=== PATIENT | female | born 1985 | race Two or more races ===

== ENCOUNTER 2021-07-19 21:08 | Observation (INO) | payer MEDICAID ==
[~2021-07-19] VITALS: Ht 162.6 cm; Wt 71.2 kg
[2021-07-19] MEDS ORDERED: NIFE1TAB31 PO (22:01)
[2021-07-19] MEDS ORDERED: SERT50TA19 PO (22:01)
[2021-07-19] MEDS ORDERED: PREN-96 PO (22:01)
== END 2021-07-19 22:10 | disposition home or self-care (01) ==
LOC: LDRP 21:08
PROVIDERS: ADMIT Obstetrics & Gynecology; ATTEND Obstetrics & Gynecology
DX: O62.9 Abnormality of forces of labor, unspecified (principal); Z3A.29 29 weeks gestation of pregnancy
CPT/HCPCS: 59025; 81002; G0378

== ENCOUNTER 2022-01-27 18:59 | Emergency (ER) | payer OTHER, MEDICAID ==
[~2022-01-27 18:59] MED LIST: NIFE1TAB31 PO; PREN-96 PO; SERT50TA19 PO
== END 2022-01-27 20:26 | disposition left against medical advice (07) ==
LOC: ER 18:59
DX: M79.89 Other specified soft tissue disorders (principal); Z53.21 Procedure and treatment not carried out due to patient leaving prior to being seen by health care provider

== ENCOUNTER 2022-08-26 14:35 | Inpatient (IN) | payer MEDICAID, OTHER ==
[~2022-08-26] VITALS: Ht 160 cm; Wt 70.0 kg
[2022-08-26] MEDS ORDERED: chlordiazePOXIDE HCL 5 MG CAP PO ONE (14:45)
[2022-08-26] MEDS ORDERED: SODIUM CHLORIDE 0.9% 1,000 ML IV ONE ×2 (14:45)
[2022-08-26] MEDS ORDERED: THIAMINE 100mg/ml INJ (200mg/2ml VIAL) IV ONE (14:45)
[2022-08-26 15:17] LABS: Basophils # (auto) 0 10 ^3/uL (0-0.2); Basophils % (auto) 0.5 % (0.0-2.0); Eosinophils # (auto) 0 10 ^3/uL (0-0.8); Hematocrit 37.3 % (36.0-46.0); Hemoglobin 12.2 g/dL (12.2-16.2); Lymphocytes # (auto) 1.1 10 ^3/uL (0.4-5.4); Lymphocytes % (auto) 13.7 % (10.0-50.0); Mean Corpuscular Hgb Conc. 32.8 g/dL (32.0-36.0); Monocytes # (auto) 0.6 10 ^3/uL (0-1.3); Monocytes % (auto) 7.7 % (0.0-12.0); Neutrophils # (auto) 6.2 10 ^3/uL (1.6-8.6); Neutrophils % (auto) 78.1 % (37.0-80.0); Nucleated Red Blood Cells % 0.1 %; Red Blood Cells 5.11 10^6/uL (4.0-5.20); Red Cell Distribution Width 20.4 % (11.8-14.3); White Blood Cell 7.9 10^3/uL (4.4-10.8)
[2022-08-26 15:19] LABS: Albumin 3.3 g/dL (3.4-5.0); Anion Gap 20 (5-15); Blood Urea Nitrogen 10 mg/dL (7-18); Calcium 8.9 mg/dL (8.5-10.1); Carbon Dioxide 23 mmol/L (21-32); Chloride 80 mmol/L (98-107); Glucose 192 mg/dL (74-106); Sodium 123 mmol/L (136-145)
[2022-08-26 15:22] LABS: Alanine Aminotransferase 43 U/L (13-56); Aspartate Aminotransferase 58 U/L (15-37); BUN/Creatinine Ratio 9.2; Blood Alcohol < 3.0 mg/dL (0-5); GFR African American 72 mL/min; GFR Non-African American 59 mL/min
[2022-08-26 15:24] LABS: Alkaline Phosphatase 94 U/L (45-117); Bilirubin, Total 1.7 mg/dL (0.2-1.0)
[2022-08-26 15:25] LABS: Potassium 2.7 mmol/L (3.5-5.1)
[2022-08-26] MEDS ORDERED: LORazepam 2MG/ML-1ML VIAL ONE (16:10)
[2022-08-26] MEDS ORDERED: POTASSIUM EFFERVESENT TAB 25 MEQ PO ONE (16:15)
[2022-08-26] MEDS ORDERED: LORazepam 2MG/ML-1ML VIAL IV ONE (16:15)
[2022-08-26] MEDS ORDERED: MULTIPLE VITAMIN TAB PO ONE (18:15)
[2022-08-26] MEDS ORDERED: ONDANSETRON HCL 4 MG/2 ML VIAL IV PRN (18:15)
[2022-08-26] MEDS ORDERED: LORazepam 2MG/ML-1ML VIAL IV PRN (18:15)
[2022-08-26] MEDS ORDERED: ACETAMINOPHEN 500 MG TAB PO PRN (18:15)
[2022-08-26] MEDS ORDERED: NITROGLYCERIN 0.4 MG SL TAB SL PRN (18:15)
[2022-08-26] MEDS ORDERED: MORPHINE SULFATE INJ 2 MG/ml SYRG IV PRN ×2 (18:15)
[2022-08-26] MEDS ORDERED: THIAMINE HCL 100 MG TAB PO ONE (18:15)
[2022-08-26] MEDS: POTASSIUM CHLORIDE 40 MEQ in SOD CHL 0.45% 1,000 ML IV SCH (20:31)
[2022-08-26 21:59] LABS: Urine Bacteria MOD /hpf (None Seen); Urine Blood Negative /uL (Negative); Urine Specific Gravity 1.004 (1.001-1.035); Urine WBC 1 /hpf (0 - 5)
[2022-08-27 06:41] LABS: Basophils # (auto) 0 10 ^3/uL (0-0.2); Eosinophils # (auto) 0 10 ^3/uL (0-0.8); Eosinophils % (auto) 0.1 % (0.0-7.0); Lymphocytes # (auto) 0.9 10 ^3/uL (0.4-5.4); Monocytes # (auto) 0.4 10 ^3/uL (0-1.3); Monocytes % (auto) 7.9 % (0.0-12.0); Nucleated Red Blood Cells % 0.1 %
[2022-08-27 06:43] LABS: Basophils % (auto) 0.4 % (0.0-2.0); Hemoglobin 11.7 g/dL (12.2-16.2); Lymphocytes % (auto) 16.8 % (10.0-50.0); Mean Corpuscular Hemoglobin 24.1 pg (28.0-32.0); Mean Corpuscular Hgb Conc. 32.3 g/dL (32.0-36.0); Mean Corpuscular Volume 74.5 fL (80.0-100.0); Neutrophils # (auto) 3.8 10 ^3/uL (1.6-8.6); Neutrophils % (auto) 74.8 % (37.0-80.0); Red Blood Cells 4.84 10^6/uL (4.0-5.20); White Blood Cell 5.1 10^3/uL (4.4-10.8)
[2022-08-27] MEDS: POTASSIUM CHLORIDE 40 MEQ in SOD CHL 0.45% 1,000 ML IV SCH (06:49)
[2022-08-27 06:57] LABS: Potassium 3.6 mmol/L (3.5-5.1)
[2022-08-27 06:58] LABS: Albumin 3.2 g/dL (3.4-5.0); Calcium 8.4 mg/dL (8.5-10.1)
[2022-08-27 07:01] LABS: BUN/Creatinine Ratio 6.3; Bilirubin, Total 1.6 mg/dL (0.2-1.0); Total Protein 7.4 g/dL (6.4-8.2)
[2022-08-27 07:15] LABS: Red Cell Distribution Width 20.2 % (11.8-14.3)
[2022-08-27] MEDS: NIFEdipine ER 30 MG TAB PO SCH ×2 (09:53→22:50)
[2022-08-27] MEDS ORDERED: SERTRALINE HCL 50 MG TAB PO SCH (10:00)
[2022-08-27] MEDS ORDERED: THIAMINE HCL 100 MG TAB PO SCH (10:00)
[2022-08-27] MEDS ORDERED: MULTIPLE VITAMIN TAB PO SCH (10:00)
[2022-08-27] MEDS: HYDROcodone-ACET 5/325MG TAB PO PRN ×2 (17:18→23:13)
[2022-08-28 06:00] VITALS: BP 138/91
== END 2022-08-28 08:45 | disposition left against medical advice (07) | DRG 53 ==
LOC: EDBD 14:35 → ER 14:35 → EDSEX 14:35 → TELE 18:06
PROVIDERS: ADMIT Nurse Practitioner Acute Care; ATTEND Nurse Practitioner Acute Care
DX: G40.89 Other seizures (principal); E87.6 Hypokalemia; F10.10 Alcohol abuse, uncomplicated; F41.9 Anxiety disorder, unspecified; I10 Essential (primary) hypertension; R55 Syncope and collapse; Z20.822 Contact with and (suspected) exposure to COVID-19; Z53.29 Procedure and treatment not carried out because of patient's decision for other reasons; Z86.32 Personal history of gestational diabetes; Z88.0 Allergy status to penicillin; Z91.013 Allergy to seafood
CPT/HCPCS: 36415; 70450; 80053; 80320; 81001; 82962; 85025; 87426; 93005; 96361; 96374; 96375; G0378; J2405

== ENCOUNTER 2025-02-16 12:56 | Emergency (ER) | payer MEDICAID ==
[~2025-02-16] VITALS: Ht 160 cm; Wt 67.7 kg
[~2025-02-16 12:56] MED LIST changes: +DICL50TA5 PO; +SERT-206 PO; -SERT50TA19 PO
[2025-02-16 13:00] VITALS: PULSE 119; RESP 19; O2SAT 96
[2025-02-16] MEDS ORDERED: SODIUM CHLORIDE 0.9% 1,000 ML IV ONE (13:15)
[2025-02-16] MEDS ORDERED: ONDANSETRON HCL 4 MG/2 ML VIAL IV ONE (13:15)
[2025-02-16] MEDS ORDERED: LORazepam 2MG/ML-1ML VIAL IV ONE (13:15)
--- NOTE | 2025-02-16 13:41 | ED.PDOC ---
Psychiatric HPI Comments 39F presents to the ER w/ prior MHx of HTN, Anxiety and the c/c of anxiety. Pt reports on possibly eating bad [place] food last night, due from her having to have N/V x2300 w/ "20" episodes. Pt has other symptoms of ABD pain, and shakiness. Denies recent changes in medications Denies alcohol, caffeine, illicit drug use Denies benzodiazepines Denies thyroid disorders Denies SI/HI/AH Denies guns at home Denies family history of mental health issue Chief Complaint: Anxiety Time Seen by MD: 13:10 Primary Care Provider: DENIES Reviewed Notes: Nurses Notes, Medications, Allergies Information Source: Patient Mode of Arrival: Ambulatory Severity: Unable to Care for Self Severity of Pain: Moderate Severity of Mental Status: Mild Severity of Symptoms: Mild Timing: Hours Duration: Since onset, Hours Prehospital treatment: None Presents with: Anxiety Ingestion: None Circumstance: Causing a Disturbance Current substance abuse: None Stressors: None History of: Anxiety Quality: None Location: None Location of pain or injury: None Associated signs and symptoms: Anxiety, Nausea, Vomiting, Abdominal Pain Past Medical History PAST MEDICAL HISTORY: Anxiety, HTN Surgical History: Denies all 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 Family History Family History: Reviewed,noncontributory to illness, Unknown Social History Smoker: Non-Smoker Alcohol: Heavy Drugs: Denies Drug Use Lives In: Home Constitutional: denies: chills, diaphoresis, fatigue, fever, malaise, sweats, weakness, others EENTM: denies: blurred vision, double vision, ear bleeding, ear discharge, ear drainage, ear pain, ear ringing, eye pain, eye redness, hearing loss, mouth pain, mouth swelling, nasal discharge, nose bleeding, nose congestion, nose pain, photophobia, tearing, throat pain, throat swelling, voice changes, others Respiratory: denies: cough, hemoptysis, orthopnea, SOB at rest, shortness of breath, SOB with excertion, stridor, wheezing, others Cardiovascular: denies: chest pain, dizzy spells, diaphoresis, Dyspnea on exertion, edema, irregular heart beat, left arm pain, lightheadedness, p alpitations, PND, syncope, others Gastrointestinal: reports: abdominal pain, nausea, vomiting; denies: abdomen distended, blood streaked bowels, constipated, diarrhea, dysphagia, difficulty swallowing, hematemesis, melena, poor appetite, poor fluid intake, rectal bleeding, rectal pain, others Genitourinary: denies: abnormal vagina bleeding, burning, dyspareunia, dysuria, flank pain, frequency, hematuria, incontinence, pain, , vagina discharge, urgency, others Neurological: denies: dizziness, fainting, headache, left sided numbness, left sided weakness, numbness, paresthesia, pre-existing deficit, right sided numbness, right sided weakness, seizure, speech problems, tingling, tremors, weakness, others Musculoskeletal: denies: back pain, gout, joint pain, joint swelling, muscle pain, muscle stiffness, neck pain, others Integumetry: denies: bruises, change in color, change in hair/nails, dryness, laceration, lesions, lumps, rash, wounds, others Allergic/Immunocompromised: denies: Difficulty Healing, Frequent Infections, Hives, Itching, others Hematologic/Lymphatic: denies: anemia, blood clots, easy bleeding, easy bruising, swollen glands, others Endocrine: denies: excessive hunger, excessive sweating, excessive thirst, excessive urination, flushing, intolerance to cold, intolerance to heat, unexplained weight gain, unexplained weight loss, others Psychiatric: denies: anxiety, bipolar disorder, depression, hopeless, panic disorder, schizophrenia, sleepless, suicidal, others All Other Systems: Reviewed and Negative Physical Exam General Appearance: No Apparent Distress, Normal HEENT: Normal ENT Inspection, Pharynx Normal, TMs Normal Neck: Full Range of Motion, Non-Tender, Normal, Normal Inspection Respiratory: Chest Non-Tender, Lungs Clear, No Accessory Muscle Use, No Respiratory Distress, Normal Breath Sounds Cardiovascular: No Edema, No JVD, No Murmur, No Gallop, Normal Peripheral Pulses, Regular Rate/Rhythm Breast Exam: Deferred Gastrointestinal: No Organomegaly, Non Tender, No Pulsatile Mass, Normal Bowel Sounds, Soft Genitalia: Deferred Pelvic: Deferred Rectal: Deferred Extremities: No calf tenderness, Normal capillary refill, Normal inspection, Normal range of motion, Non-tender, No pedal edema Musculoskeletal : Apperance: Normal Neurologic: Alert, 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 Was a procedure done?: No Psych Differential Dx Psych. Differential Dx: Anxiety, Other X-Ray, Labs, Meds, VS Vital Signs Date Time Temp Pulse Resp B/P (MAP) Pulse Ox O2 Delivery O2 Flow Rate FiO2 02/16/25 13:00 119 19 96 Lab Test 02/16/25 13:23 Range/Units White Blood Count 8.1 4.4-10.8 10^3/uL Red Blood Count 5.03 4.0-5.20 10^6/uL Hemoglobin 11.6 L 12.2-16.2 g/dL Hematocrit 36.4 36.0-46.0 % Mean Corpuscular Volume 72.4 L 80.0-100.0 fL Mean Corpuscular Hemoglobin 23.1 L 28.0-32.0 pg Mean Corpuscular Hemoglobin Concent 32.0 32.0-36.0 g/dL Red Cell Distribution Width 24.7 H 11.8-14.3 % Platelet Count 239 140-450 10^3/uL Mean Platelet Volume 8.1 6.9-10.8 fL Neutrophils (%) (Auto) 75.6 37.0-80.0 % Lymphocytes (%) (Auto) 16.1 10.0-50.0 % Monocytes (%) (Auto) 7.7 0.0-12.0 % Eosinophils (%) (Auto) 0.0 0.0-7.0 % Basophils (%) (Auto) 0.6 0.0-2.0 % Neutrophils # (Auto) 6.1 1.6-8.6 10 ^3/uL Lymphocytes # (Auto) 1.3 0.4-5.4 10 ^3/uL Monocytes # (Auto) 0.6 0-1.3 10 ^3/uL Eosinophils # (Auto) 0 0-0.8 10 ^3/uL Basophils # (Auto) 0.1 0-0.2 10 ^3/uL Nucleated Red Blood Cells 0.1 % Sodium Level 143 136-145 mmol/L Potassium Level 3.3 L 3.5-5.1 mmol/L Chloride Level 99 98-107 mmol/L Carbon Dioxide Level 25 20-31 mmol/L Anion Gap 19 H 5-15 Blood Urea Nitrogen 9 9-23 mg/dL Creatinine 1.00 0.550-1.02 mg/dL Glomerular Filtration Rate Calc 73 >90 mL/min BUN/Creatinine Ratio 9.0 L 10.0-20.0 Serum Glucose 150 H 74-106 mg/dL Calcium Level 9.2 8.7-10.4 mg/dL X-Ray, Labs, Meds, VS Comment 39F presents to the ER w/ prior MHx of HTN, Anxiety and the c/c of anxiety. Patient arrives alert and oriented, ABC's intact, afebrile, vital signs stable, saturating well in room air Peripheral IV insertion+ labs were ordered. CBC was ordered to exclude anemia, blood loss, or infection. BMP was ordered to exclude electrolyte abnormalities, renal failure, dehydration, hyperglycemia Preg Urinalysis was ordered to rule out UTI or hematuria. Patient eloped from the ER Time of 1ST Reevaluation: 13:40 Reevaluation 1ST: Unchanged Patient Education/Counseling: Diagnosis, Treatment, Prognosis Family Education/Counseling: No Family Present Departure 1 Departure Time of Disposition: 15:34 Impression: Primary Impression: Eloped from emergency department Disposition: 07 LEFT AWOL/ELOPED Condition: Poor Critical Care Note Critical Care Time?: No Stability Stability form required: No Heart Score Heart Score: Heart Score Response (Comments) Value History N/A 0 EKG N/A 0 Age N/A 0 Risk Factors N/A 0 Troponin N/A 0 Total 0 I personally scribed for YESENIA CANTU NP ([email or web address]) on 02/16/25 at 13:41. Electronically submitted by Jeffrey Ewing ([email or web address]). YESENIA CANTU NP Feb 16, 2025 13:41
[2025-02-16 13:51] LABS: Hematocrit 36.4 % (36.0-46.0)
[2025-02-16 13:52] LABS: Hemoglobin 11.6 g/dL (12.2-16.2); Mean Corpuscular Hemoglobin 23.1 pg (28.0-32.0); Mean Corpuscular Volume 72.4 fL (80.0-100.0); Nucleated Red Blood Cells % 0.1 %
[2025-02-16 14:01] LABS: Chloride 99 mmol/L (98-107); Sodium 143 mmol/L (136-145)
[2025-02-16 14:02] LABS: Anion Gap 19 (5-15); Carbon Dioxide 25 mmol/L (20-31)
[2025-02-16 14:03] LABS: Calcium 9.2 mg/dL (8.7-10.4)
[2025-02-16 14:07] LABS: Potassium 3.3 mmol/L (3.5-5.1)
[2025-02-16 14:08] LABS: BUN/Creatinine Ratio 9.0 (10.0-20.0); Blood Urea Nitrogen 9 mg/dL (9-23); Glucose 150 mg/dL (74-106)
== END 2025-02-16 14:24 | disposition left against medical advice (07) ==
LOC: ER 12:56
DX: F41.9 Anxiety disorder, unspecified (principal); R11.2 Nausea with vomiting, unspecified; R10.9 Unspecified abdominal pain; I10 Essential (primary) hypertension
CPT/HCPCS: 36415; 80048; 85025